=== PATIENT | male | born 1965 | race Caucasian/White ===

== ENCOUNTER 2020-01-27 15:55 | Emergency (ER) | payer OTHER ==
[2020-01-27] MEDS ORDERED: Lidocaine 1% 30 ML SDV INJECT ONE (18:01)
[2020-01-27] MEDS ORDERED: Bacitracin Oint 1 GM U/D Packet TOP ONE (18:15)
--- NOTE | 2020-01-27 18:31 | EDM.PDOC ---
Scribed by Marianela Hollins 01/27/20 1831 for Melissa Chau MD ED HPI GENERAL MEDICAL PROBLEM - General Chief Complaint: Lower Extremity Injury/Pain Stated Complaint: FISHING HOOK ABOVE RIGHT Time Seen by Provider: 01/27/20 17:55 Source of Information: Reports: Patient, RN, RN Notes Reviewed History Limitations: Reports: No Limitations - History of Present Illness INITIAL COMMENTS - FREE TEXT/NARRATIVE: Patient presents to ED by POV. Patient was taking a hook out of a walleye today when the hook flipped and hit his right lower thigh. He tired to pull it through without any luck. Onset: Today Duration: Constant Location: Reports: Lower Extremity, Right Quality: Reports: Ache Severity: Mild Improves with: Reports: None Worsens with: Reports: None Associated Symptoms: Reports: No Other Symptoms - Related Data Allergies Allergy/AdvReac Type Severity Reaction Status Date / Time No Known Allergies Allergy Verified 01/27/20 16:43 Home Meds: Home Meds . [No Known Home Meds] 01/27/20 [History] Past Medical History - Past Health History Medical/Surgical History: Denies Medical/Surgical History Social & Family History - Family History Family Medical History: Noncontributory - Tobacco Use Smoking Status *Q: Never Smoker - Caffeine Use Caffeine Use: Reports: None - Recreational Drug Use Recreational Drug Use: No Review of Systems - Review of Systems Review Of Systems: Comprehensive ROS is negative, except as noted in HPI. ED EXAM, GENERAL - Physical Exam Exam: See Below Exam Limited By: No Limitations General Appearance: Alert, WD/WN, No Apparent Distress Head: Atraumatic, Normocephalic Respiratory/Chest: No Respiratory Distress, Lungs Clear, Normal Breath Sounds, No Accessory Muscle Use, Chest Non-Tender Cardiovascular: Normal Peripheral Pulses, Regular Rate, Rhythm, No Edema, No Gallop, No JVD, No Murmur, No Rub Extremities: Other (see below) Neurological: Alert, Oriented, CN II-XII Intact, Normal Cognition, Normal Gait, Normal Reflexes, No Motor/Sensory Deficits Psychiatric: Normal Affect, Normal Mood Skin Exam: Other (Fish hook in right leg. ) ED TRAUMA EXTREMITY PROCEDURES - Foreign Body Removal Indication:: fishhook in right leg Consent Obtained: Patient Performing Doctor:: Melissa Chau Foreign Body Other Location Comment:: right thigh Anesthesia Type: Local Anesthesia Other:: 1% lidocaine Complications:: No Course - Vital Signs Last Recorded V/S: Last Vital Signs Temp 99.1 F 01/27/20 16:43 Pulse 65 01/27/20 16:43 Resp 18 01/27/20 16:43 BP 134/61 01/27/20 16:43 Pulse Ox 99 01/27/20 16:43 - Orders/Labs/Meds Meds: Medications Discontinued Medications Generic Name Dose Route Start Last Admin Trade Name Oneil PRN Reason Stop Dose Admin Bacitracin 1 dose 01/27/20 18:15 Bacitracin Oint 1 Gm TOP 01/27/20 18:16 ONETIME ONE Lidocaine HCl 30 ml 01/27/20 18:01 01/27/20 18:05 Xylocaine-Mpf 1% INJECT 01/27/20 18:02 30 ml ONETIME ONE Administration Departure - Departure Time of Disposition: 18:30 Disposition: Home, Self-Care 01 Condition: Good Clinical Impression: Fish hook injury of right lower leg Qualifiers: Encounter type: initial encounter Qualified Code(s): S89.91XA - Unspecified injury of right lower leg, initial encounter - Discharge Information *PRESCRIPTION DRUG MONITORING PROGRAM REVIEWED*: Not Applicable *COPY OF PRESCRIPTION DRUG MONITORING REPORT IN PATIENT MAT: Not Applicable Instructions: Puncture Wound Forms: ED Department Discharge Sepsis Event Note (ED) - Evaluation Sepsis Screening Result: No Definite Risk - Focused Exam Vital Signs: Vital Signs Temp Pulse Resp BP Pulse Ox 01/27/20 16:43 99.1 F 65 18 134/61 99 I have read and agree with the documentation that has been completed regarding this visit. By signing this record, I attest that the documentation was completed in my physical presence and is an accurate record of the encounter.
== END 2020-01-27 18:47 | disposition home or self-care (01) ==
LOC: DL.ED 15:55
DX: S80.851A Superficial foreign body, right lower leg, initial encounter (principal); W45.8XXA Other foreign body or object entering through skin, initial encounter
CPT/HCPCS: 99282; 99283; J2001